=== PATIENT | male | born 1995 | race Caucasian/White ===

== ENCOUNTER 2024-11-13 13:22 | Emergency (ER) | payer OTHER ==
[~2024-11-13] VITALS: Ht 165.1 cm; Wt 79.4 kg
[2024-11-13 13:45] VITALS: BP 119/74; TEMP 98.1; O2SAT 98
== END 2024-11-13 16:09 | disposition home or self-care (01) ==
LOC: ER 13:28
DX: M25.561 Pain in right knee (principal)
CPT/HCPCS: 73564-TC